=== PATIENT | female | born 1975 | race Caucasian/White ===

== ENCOUNTER 2017-05-22 10:57 | Day surgery (SDC) | payer MEDICAID ==
[~2017-05-22] VITALS: Ht 175.3 cm; Wt 65.8 kg
[2017-05-22 11:05] VITALS: BP_SYST 130
--- NOTE | 2017-05-22 11:05 | NUR ---
ER at bedside examining patient.
--- NOTE | 2017-05-22 11:05 | NUR ---
Patient to ER bed 07 to gown for evaluation. Side rails up. Report given to Lara RINCON.
--- NOTE | 2017-05-22 11:15 | NUR ---
Pt states she took the pill last night and had minimal bleeding, then this morning when she woke up there was a lot of blood and cramping. Pt states she called her PCP and they told her to come into the ER. No other injuries/complaints per pt or noted.
[2017-05-22 11:35] LABS: BASOPHILS % (AUTO) 0.5 % (0.0-2.0); EOSINOPHILS # (AUTO) 0.1 K/uL (0.0-0.4); EOSINOPHILS % (AUTO) 1.1 % (0.0-4.0); HEMATOCRIT 32.3 % (36-48); HEMOGLOBIN 10.9 g/dL (12.0-16.0); LYMPHOCYTES # (AUTO) 1.5 K/uL (1.0-5.5); LYMPHOCYTES % (AUTO) 20.3 % (20.5-51.5); MEAN CORPUSCULAR HEMOGLOBIN 31 pg (27-31); MEAN CORPUSCULAR HGB CONC 34 % (32-36); MEAN CORPUSCULAR VOLUME 93 fL (79.0-98.0); MONOCYTES # (AUTO) 0.3 K/uL (0.0-1.0); MONOCYTES % (AUTO) 4.1 % (1.7-9.3); NEUTROPHILS # (AUTO) 5.7 K/uL (1.8-7.7); PLATELET COUNT (AUTO) 200 K/uL (130-430); RED BLOOD CELL COUNT(AUTO) 3.46 MIL/uL (4.2-6.2); RED CELL DISTRIBUTION WIDTH 13.6 % (9.0-15.0); WHITE BLOOD COUNT (AUTO) 7.6 K/uL (4.8-10.8)
[2017-05-22 11:56] LABS: CALCIUM 8.5 mg/dL (8.4-11.0); CREATININE 0.52 mg/dL (0.55-1.30); POTASSIUM 3.4 mmol/L (3.5-5.1)
[2017-05-22 12:13] LABS: ALBUMIN 3.8 g/dL (3.4-4.8); TOTAL BILIRUBIN 0.3 mg/dL (0.0-1.0); TOTAL PROTEIN, SERUM 7.1 g/dL (6.4-8.3)
--- NOTE | 2017-05-22 12:33 | NUR ---
Pt returned from [facility] in stable condition
--- NOTE | 2017-05-22 13:10 | NUR ---
Pt returned from [facility] in stable condition
--- NOTE | 2017-05-22 13:30 | NUR ---
Dr Miller was called and D and C was ordered for pt, pt is aware. OR was called and made aware as well
[2017-05-22] MEDS ORDERED: CEFAZOLIN 2 GM IVPB PREMIX 50 ML IV ONE (13:45)
[2017-05-22] MEDS ORDERED: D5LR 1,000 ML IV SCH (13:45)
--- NOTE | 2017-05-22 14:00 | NUR ---
Pt was able to give urine speciman and IV hydration was started as well as ATB. Pt tolerated it well and no noted distress or discomfort at this time.
[2017-05-22 14:35] LABS: BILIRUBIN,URINE NEGATIVE (NEGATIVE); BLOOD, URINE 3+ (NEGATIVE); CLARITY/URINE CLOUDY (CLEAR); COLOR,URINE RED (YELLOW); GLUCOSE,URINE NEGATIVE (NEGATIVE); KETONES,URINE TRACE (NEGATIVE); LEUKOCYTE ESTERASE ,URINE 2+ (NEGATIVE); NITRITE, URINE POSITIVE (NEGATIVE); PH,URINE 6.5 (5.0-8.0); PROTEIN URINE 3+ (NEGATIVE)
--- NOTE | 2017-05-22 14:45 | NUR ---
Pt is resting comfortably in bed with no complaints of pain
[2017-05-22 14:53] LABS: BACTERIA,URINE RARE /HPF (None Seen); RBC,URINE >100 /HPF (0-3)
[2017-05-22] MEDS ORDERED: SEVOFLURANE 15 MIN GAS INH ONE (15:19)
[2017-05-22] MEDS ORDERED: MIDAZOLAM HCL 5 MG/5 ML VIAL IVP ONE (15:19)
[2017-05-22] MEDS ORDERED: METHYLERGONOVINE MALEATE 0.2 MG/ML AMP IM ONE (15:19)
[2017-05-22] MEDS ORDERED: PROPOFOL 200MG/ 20ML VIAL (DIPRIVAN) IV ONE (15:19)
[2017-05-22] MEDS ORDERED: DEXAMETHASONE SOD PHOSPHATE 4 MG/ML VIAL IVP ONE (15:19)
[2017-05-22] MEDS ORDERED: fentaNYL CITRATE/PF 100 MCG/2 ML AMP IVP ONE (15:19)
[2017-05-22] MEDS ORDERED: NS IRRIG SOLN 1000 ML IR ONE (15:19)
[2017-05-22] MEDS ORDERED: METOCLOPRAMIDE HCL 10 MG/2 ML VIAL IVP ONE (15:19)
--- NOTE | 2017-05-22 15:20 | NUR ---
Patient will be admitted to care of Dr Miller. Admitted to outpatient unit. Will go to room OR. Belongings list completed. Summary report printed. Report will be given at bedside.
--- NOTE | 2017-05-22 15:20 | NUR ---
Security was called and they will be taking the personal belongings until the pt leaves the OR
[2017-05-22] MEDS ORDERED: LR 1,000 ML IV SCH (15:41)
[2017-05-22] MEDS ORDERED: IBUPROFEN 800 MG TABLET PO PRN (15:45)
[2017-05-22] MEDS ORDERED: ONDANSETRON HCL 4 MG/2 ML VIAL IVP PRN ×3 (15:45→16:30)
[2017-05-22] MEDS ORDERED: MEPERIDINE HCL/PF 50 MG/ML AMP IVP PRN (15:45)
[2017-05-22] MEDS ORDERED: PROMETHAZINE HCL 25 MG/ML AMP IVP PRN (15:45)
[2017-05-22] MEDS ORDERED: HYDROcodone/ACETAMIN 5-325 MG TAB (NORCO/ VICODIN) PO PRN (15:45)
[2017-05-22] MEDS ORDERED: LR 1,000 ML IV ONE (16:16)
[2017-05-22] MEDS ORDERED: fentaNYL CITRATE/PF 100 MCG/2 ML AMP IVP PRN (16:30)
[2017-05-22] MEDS ORDERED: DIPHENHYDRAMINE INJ 50 MG/ML VIAL IVP PRN (16:30)
[2017-05-22] MEDS ORDERED: ePHEDrine sulfate 50 MG/ML VIAL IVP PRN (16:30)
[2017-05-22] MEDS ORDERED: NALOXONE HCL 0.4 MG/ML AMP (NARCAN) IVP PRN (16:30)
[2017-05-22] MEDS ORDERED: NALBUPHINE HCL 10 MG/ML AMP IVP PRN (16:30)
[2017-05-22 16:45] VITALS: BP_SYST 108
== END 2017-05-22 17:35 | disposition home or self-care (01) ==
LOC: SED 10:57 → SDS 13:36
PROVIDERS: ATTEND Specialist
DX: O03.4 Incomplete spontaneous abortion without complication (principal); F32.9 Major depressive disorder, single episode, unspecified; E03.9 Hypothyroidism, unspecified; F41.9 Anxiety disorder, unspecified
CPT/HCPCS: 36415; 59812; 76801; 76817; 80053; 81000; 83605; 84702; 85025; 86886; 86900; 86901; 87040; 87086; 88305; 96365; 99285; J0690; J1100; J2210; J2250; J2704; J2765; J3010

== ENCOUNTER 2023-06-01 10:51 | Inpatient (IN) | payer MEDICAID ==
[~2023-06-01] VITALS: Ht 175.3 cm; Wt 65.8 kg
[2023-06-01 10:55] VITALS: BP_SYST 121; PULSE 75; RESP 21; TEMP 98.7; O2SAT 93
[2023-06-01] MEDS ORDERED: MORPHINE 4 MG INJ. 4 MG/ML VIAL IM ONE (11:15)
[2023-06-01] MEDS ORDERED: MORPHINE 2 MG/ML INJ. SYRINGE IVP ONE (11:30)
[2023-06-01 11:31] LABS: BASOPHILS # (AUTO) 0.1 K/uL (0.0-0.2); BASOPHILS % (AUTO) 0.8 % (0.0-2.0); EOSINOPHILS # (AUTO) 0.2 K/uL (0.0-0.4); EOSINOPHILS % (AUTO) 1.6 % (0.0-4.0); HEMATOCRIT 40.4 % (36-48); HEMOGLOBIN 13.7 g/dL (12.0-16.0); LYMPHOCYTES # (AUTO) 2.3 K/uL (1.0-5.5); LYMPHOCYTES % (AUTO) 20.7 % (20.5-51.5); MEAN CORPUSCULAR HEMOGLOBIN 34 pg (27-31); MEAN CORPUSCULAR HGB CONC 34 % (32-36); MEAN CORPUSCULAR VOLUME 99 fL (79.0-98.0); MONOCYTES # (AUTO) 0.5 K/uL (0.0-1.0); MONOCYTES % (AUTO) 4.3 % (1.7-9.3); NEUTROPHILS # (AUTO) 7.9 K/uL (1.8-7.7); NEUTROPHILS % (AUTO) 72.6 % (40.0-70.0); PLATELET COUNT (AUTO) 213 K/uL (130-430); RED BLOOD CELL COUNT(AUTO) 4.07 MIL/uL (4.2-6.2); RED CELL DISTRIBUTION WIDTH 14.4 % (9.0-15.0); WHITE BLOOD COUNT (AUTO) 10.9 K/uL (4.8-10.8)
[2023-06-01 11:50] LABS: INR 0.9 (0.8-1.2); PROTHROMBIN TIME 9.3 SECS (9.5-12.5); SERUM HCG (QUALITATIVE) NEGATIVE (NEGATIVE)
[2023-06-01 11:51] LABS: CALCIUM 8.5 mg/dL (8.4-11.0); CREATININE 0.65 mg/dL (0.55-1.30); POTASSIUM 3.4 mmol/L (3.5-5.1)
[2023-06-01 12:00] LABS: ALBUMIN 3.9 g/dL (3.4-4.8); TOTAL BILIRUBIN 0.5 mg/dL (0.0-1.0); TOTAL PROTEIN, SERUM 7.3 g/dL (6.4-8.3)
[2023-06-01 12:50] LABS: CLARITY/URINE SLIGHTLY HAZY (CLEAR); COLOR,URINE YELLOW (YELLOW)
[2023-06-01 12:51] LABS: BILIRUBIN,URINE NEGATIVE (NEGATIVE); BLOOD, URINE TRACE (NEGATIVE); GLUCOSE,URINE NEGATIVE (NEGATIVE); KETONES,URINE 3+ (NEGATIVE); LEUKOCYTE ESTERASE ,URINE NEGATIVE (NEGATIVE); NITRITE, URINE NEGATIVE (NEGATIVE); PROTEIN URINE TRACE (NEGATIVE); UROBILINOGEN,URINE 0.2 (0.2-1.0)
[2023-06-01 12:56] LABS: BACTERIA,URINE RARE /HPF (None Seen); RBC,URINE 0-3 /HPF (0-3); WBC,URINE 0-3 /HPF (0-3)
[2023-06-01] MEDS ORDERED: MORPHINE 4 MG INJ. 4 MG/ML VIAL IVP ONE ×3 (14:00→21:30)
[2023-06-01] MEDS ORDERED: NACL 0.9% 1,000 ML IV ONE (14:00)
[2023-06-01] MEDS ORDERED: ONDANSETRON HCL 4 MG/2 ML VIAL IVP ONE (14:00)
[2023-06-01] MEDS ORDERED: ONDA-8 TL ×2 (14:06)
[2023-06-01] MEDS ORDERED: IBUP-1969 PO ×2 (14:06)
[2023-06-01] MEDS ORDERED: OXYC-128 PO ×2 (14:06)
[2023-06-01 15:36] LABS: BARBITURATE, URINE NEGATIVE (NEG <=200); BENZODIAZEPINE, URINE NEGATIVE (NEG <=150); CANNABINOID, URINE NEGATIVE (NEG <=50); COCAINE, URINE NEGATIVE (NEG <=150); METHAMPHETAMINES SCREEN,URINE NEGATIVE (NEG <=500); OPIATE, URINE POSITIVE (NEG <=100); PHENCYCLIDINE SCREEN,URINE NEGATIVE (NEG <=25); URINE AMPHETAMINE POSITIVE (NEG <=500); URINE METHADONE NEGATIVE (NEG <=200); URINE OXYCODONE SCREEN NEGATIVE (NEG <=100); URINE PROPOXYPHENE SCREEN NEGATIVE (NEG <=300)
[2023-06-01 15:37] LABS: UR TRICYCLIC ANTIDEPRESSANTS POSITIVE (NEG <=300)
[2023-06-01] MEDS ORDERED: D5/0.45 NS 1,000 ML IV ONE (16:15)
[2023-06-01] MEDS ORDERED: NALOXONE HCL 0.4 MG/ML AMP (NARCAN) IVP PRN (16:45)
[2023-06-01] MEDS ORDERED: LORazepam 2 MG/ML VIAL IVP PRN (16:45)
[2023-06-01] MEDS ORDERED: LEVO88TA5 PO (16:48)
[2023-06-01] MEDS ORDERED: ESCI10TA PO (16:49)
[2023-06-01] MEDS ORDERED: SER25 PO (16:50)
[2023-06-01] MEDS: cefTRIAXone 1 GM in D5W 50 ML IV SCH (18:33)
[2023-06-01] MEDS: MORPHINE 4 MG INJ. 4 MG/ML VIAL IVP PRN ×3 (19:32→23:57)
[2023-06-01 20:00] VITALS: BP_SYST 131; PULSE 70; RESP 20; TEMP 97.8; O2SAT 98
[2023-06-01 21:49] VITALS: BP_SYST 131; PULSE 70; RESP 20; TEMP 96.8
[2023-06-01] MEDS: ONDANSETRON HCL 4 MG/2 ML VIAL IVP PRN (22:08)
[2023-06-02] VITALS (8 sets, daily range): BP systolic 114–137; PULSE 70–89; RESP 16–20; TEMP 96.7–98.2; O2SAT 97–99
[2023-06-02] MEDS: MORPHINE 4 MG INJ. 4 MG/ML VIAL IVP PRN ×5 (03:59→21:44)
[2023-06-02 04:55] LABS: BASOPHILS % (AUTO) 0.3 % (0.0-2.0); EOSINOPHILS % (AUTO) 0.1 % (0.0-4.0); HEMATOCRIT 40.3 % (36-48); HEMOGLOBIN 13.9 g/dL (12.0-16.0); LYMPHOCYTES # (AUTO) 0.8 K/uL (1.0-5.5); LYMPHOCYTES % (AUTO) 7.5 % (20.5-51.5); MEAN CORPUSCULAR HEMOGLOBIN 34 pg (27-31); MEAN CORPUSCULAR HGB CONC 35 % (32-36); MEAN CORPUSCULAR VOLUME 98 fL (79.0-98.0); MONOCYTES # (AUTO) 0.4 K/uL (0.0-1.0); MONOCYTES % (AUTO) 4.4 % (1.7-9.3); NEUTROPHILS # (AUTO) 8.8 K/uL (1.8-7.7); NEUTROPHILS % (AUTO) 87.7 % (40.0-70.0); PLATELET COUNT (AUTO) 188 K/uL (130-430); RED BLOOD CELL COUNT(AUTO) 4.13 MIL/uL (4.2-6.2); RED CELL DISTRIBUTION WIDTH 14.4 % (9.0-15.0)
[2023-06-02 05:56] LABS: ALBUMIN 3.4 g/dL (3.4-4.8); CALCIUM 7.5 mg/dL (8.4-11.0); CREATININE 0.49 mg/dL (0.55-1.30); PHOSPHORUS 1.7 mg/dL (2.7-4.5); POTASSIUM 3.3 mmol/L (3.5-5.1); TOTAL BILIRUBIN 0.5 mg/dL (0.0-1.0); TOTAL PROTEIN, SERUM 6.7 g/dL (6.4-8.3)
[2023-06-02] MEDS: ONDANSETRON HCL 4 MG/2 ML VIAL IVP PRN ×3 (09:42→17:31)
[2023-06-02 10:41] LABS: CHOLESTEROL 201 mg/dL (<200); HDL CHOLESTEROL 113 mg/dL (>55); TRIGLYCERIDES 62 mg/dL (30-150)
[2023-06-02] MEDS ORDERED: D5/0.45 NS 1,000 ML IV SCH ×2 (14:45)
[2023-06-02] MEDS: cefTRIAXone 1 GM in D5W 50 ML IV SCH (17:31)
[2023-06-02] MEDS: D5LR 1,000 ML IV SCH (17:38)
[2023-06-03] MEDS: D5LR 1,000 ML IV SCH ×4 (00:52→22:00)
[2023-06-03 01:30] VITALS: BP_SYST 113; PULSE 92; RESP 16; TEMP 97; O2SAT 97
[2023-06-03] MEDS: MORPHINE 4 MG INJ. 4 MG/ML VIAL IVP PRN ×6 (01:58→22:43)
[2023-06-03 05:56] LABS: BASOPHILS % (AUTO) 0.2 % (0.0-2.0); EOSINOPHILS % (AUTO) 0.3 % (0.0-4.0); HEMATOCRIT 37.1 % (36-48); HEMOGLOBIN 12.6 g/dL (12.0-16.0); LYMPHOCYTES # (AUTO) 0.9 K/uL (1.0-5.5); LYMPHOCYTES % (AUTO) 9.7 % (20.5-51.5); MEAN CORPUSCULAR HEMOGLOBIN 34 pg (27-31); MEAN CORPUSCULAR HGB CONC 34 % (32-36); MEAN CORPUSCULAR VOLUME 99 fL (79.0-98.0); MONOCYTES # (AUTO) 0.6 K/uL (0.0-1.0); MONOCYTES % (AUTO) 6.4 % (1.7-9.3); NEUTROPHILS % (AUTO) 83.4 % (40.0-70.0); PLATELET COUNT (AUTO) 153 K/uL (130-430); RED BLOOD CELL COUNT(AUTO) 3.73 MIL/uL (4.2-6.2); RED CELL DISTRIBUTION WIDTH 14.6 % (9.0-15.0); WHITE BLOOD COUNT (AUTO) 9.6 K/uL (4.8-10.8)
[2023-06-03 06:09] LABS: CALCIUM 7.8 mg/dL (8.4-11.0); CREATININE 0.53 mg/dL (0.55-1.30)
[2023-06-03 06:23] LABS: POTASSIUM 2.8 mmol/L (3.5-5.1)
[2023-06-03] MEDS ORDERED: POTASSIUM CHLORIDE 40 MEQ in D5W 250 ML IV ONE (06:45)
[2023-06-03 08:00] VITALS: BP_SYST 103; PULSE 66; RESP 16; TEMP 97.9; O2SAT 97
[2023-06-03] MEDS ORDERED: HYDROcodone/ACETAMIN 5-325 MG TAB (NORCO/ VICODIN) PO PRN (10:45)
[2023-06-03] MEDS ORDERED: HYDROcodone/ACETAMIN 10-325 MG TAB PO PRN (10:45)
[2023-06-03] MEDS ORDERED: NALOXONE HCL 0.4 MG/ML AMP (NARCAN) IVP PRN ×2 (10:45)
[2023-06-03] MEDS ORDERED: ACETAMINOPHEN 325 MG TABLET PO PRN ×2 (10:45)
[2023-06-03 12:00] VITALS: BP_SYST 110; PULSE 75; RESP 16; TEMP 97.5; O2SAT 97
[2023-06-03 16:00] VITALS: BP_SYST 116; PULSE 73; RESP 18; TEMP 97.9; O2SAT 97
[2023-06-03] MEDS: cefTRIAXone 1 GM in D5W 50 ML IV SCH (17:39)
[2023-06-03 19:30] VITALS: O2SAT 98
[2023-06-03 20:00] VITALS: BP_SYST 113; PULSE 79; RESP 16; TEMP 97.9; O2SAT 98
[2023-06-03] MEDS: MORPHINE 2 MG/ML INJ. SYRINGE IVP PRN (20:39)
[2023-06-04 01:36] VITALS: BP_SYST 115; PULSE 64; RESP 18; TEMP 98.6; O2SAT 97
[2023-06-04] MEDS: MORPHINE 4 MG INJ. 4 MG/ML VIAL IVP PRN ×2 (02:44→06:49)
[2023-06-04] MEDS: D5LR 1,000 ML IV SCH ×2 (04:34→08:37)
[2023-06-04 05:50] LABS: BASOPHILS % (AUTO) 0.1 % (0.0-2.0); EOSINOPHILS # (AUTO) 0.1 K/uL (0.0-0.4); EOSINOPHILS % (AUTO) 1.3 % (0.0-4.0); HEMATOCRIT 32.8 % (36-48); HEMOGLOBIN 11.2 g/dL (12.0-16.0); LYMPHOCYTES # (AUTO) 0.9 K/uL (1.0-5.5); LYMPHOCYTES % (AUTO) 11.5 % (20.5-51.5); MEAN CORPUSCULAR HEMOGLOBIN 34 pg (27-31); MEAN CORPUSCULAR HGB CONC 34 % (32-36); MEAN CORPUSCULAR VOLUME 100 fL (79.0-98.0); MONOCYTES # (AUTO) 0.6 K/uL (0.0-1.0); MONOCYTES % (AUTO) 7.3 % (1.7-9.3); NEUTROPHILS # (AUTO) 6.5 K/uL (1.8-7.7); NEUTROPHILS % (AUTO) 79.8 % (40.0-70.0); PLATELET COUNT (AUTO) 139 K/uL (130-430); RED CELL DISTRIBUTION WIDTH 14.6 % (9.0-15.0); WHITE BLOOD COUNT (AUTO) 8.1 K/uL (4.8-10.8)
[2023-06-04 06:18] LABS: ALBUMIN 2.2 g/dL (3.4-4.8); CALCIUM 7.9 mg/dL (8.4-11.0); CREATININE 0.46 mg/dL (0.55-1.30); POTASSIUM 3.1 mmol/L (3.5-5.1); TOTAL BILIRUBIN 0.4 mg/dL (0.0-1.0); TOTAL PROTEIN, SERUM 5.3 g/dL (6.4-8.3)
[2023-06-04] MEDS ORDERED: POTASSIUM CHLORIDE 40 MEQ in D5W 250 ML IV ONE (06:45)
[2023-06-04 08:00] VITALS: BP_SYST 114; PULSE 79; RESP 18; TEMP 97.4; O2SAT 95
[2023-06-04] MEDS ORDERED: OXYC-128 PO (09:44)
[2023-06-04] MEDS ORDERED: IBUP-1969 PO (09:44)
[2023-06-04] MEDS ORDERED: ONDA-8 TL (09:44)
[2023-06-04] MEDS ORDERED: THIAMINE HCL 100 MG TABLET PO ONE (10:15)
[2023-06-04] MEDS: MORPHINE 2 MG/ML INJ. SYRINGE IVP PRN (10:48)
[2023-06-04 12:00] VITALS: BP_SYST 113; PULSE 82; RESP 18; TEMP 98; O2SAT 100
[2023-06-04 13:10] VITALS: BP_SYST 114; PULSE 79; RESP 18; TEMP 97.4; O2SAT 95
[2023-06-04] MEDS ORDERED: AMOX-423 PO (17:11)
[2023-06-04] MEDS ORDERED: L.RH1CAP PO (17:11)
[2023-06-05] MEDS ORDERED: THIAMINE HCL 100 MG TABLET PO SCH (09:00)
== END 2023-06-04 14:00 | disposition home or self-care (01) | DRG 282 ==
LOC: SED 10:51 → SMU 16:08
PROVIDERS: ADMIT Preventive Medicine Preventive Medicine/Occupational Environmental Medicine; ATTEND Preventive Medicine Preventive Medicine/Occupational Environmental Medicine
DX: K85.90 Acute pancreatitis without necrosis or infection, unspecified (principal); R65.11 Systemic inflammatory response syndrome (SIRS) of non-infectious origin with acute organ dysfunction; E44.1 Mild protein-calorie malnutrition; E83.51 Hypocalcemia; E88.09 Other disorders of plasma-protein metabolism, not elsewhere classified; Z68.21 Body mass index [BMI] 21.0-21.9, adult; E87.1 Hypo-osmolality and hyponatremia; E03.9 Hypothyroidism, unspecified; F32.A Depression, unspecified; D64.9 Anemia, unspecified; E87.6 Hypokalemia; R73.9 Hyperglycemia, unspecified; F10.20 Alcohol dependence, uncomplicated; F15.90 Other stimulant use, unspecified, uncomplicated; F11.90 Opioid use, unspecified, uncomplicated
CPT/HCPCS: 36415; 76376; 76700-TC; 80048; 80053; 80061; 80307; 81000; 82150; 82787; 83605; 83615; 83690; 83735; 84100; 84703; 85025; 85610-TC; 85730-TC; 86038; 86301; 87040; 87086; 96361; 96374; 96375; 96376; 99285; J0696; J2270; J2405; J3480; J7030; J7060; J7120